=== PATIENT | female | born 1970 | race Caucasian/White ===

== ENCOUNTER → 2021-10-01 11:54 | Outpatient (BNVA) | payer OTHER, SELFPAY | PROVIDERS: Visit Provider Nurse Practitioner Family | DX: M79.641 Pain in right hand (principal); M79.642 Pain in left hand | CPT/HCPCS: 73130 ==

== ENCOUNTER → 2022-02-12 11:15 | Outpatient (BNVA) | payer OTHER, SELFPAY | PROVIDERS: Visit Provider Nurse Practitioner Family | DX: M25.531 Pain in right wrist (principal); M19.90 Unspecified osteoarthritis, unspecified site; M25.50 Pain in unspecified joint; M79.10 Myalgia, unspecified site; R53.83 Other fatigue; Z13.220 Encounter for screening for lipoid disorders; Z79.899 Other long term (current) drug therapy | CPT/HCPCS: 73110; 80053; 80061; 82306; 82607; 84443; 84550; 85651; 86038; 86140; 86200; 86431; 86705; 86706; 86709; 86803; 87340 ==

== ENCOUNTER 2022-07-24 11:48 | Emergency (ER) | payer OTHER, SELFPAY ==
[2022-07-24 12:20] VITALS: BMI 19.5
[2022-07-24 12:25] VITALS: BP 120/71; PULSE 71; RESP 18; TEMP 36.6; O2SAT 98
[2022-07-24 13:49] LABS: Basophils # 0.1 10^3/uL (0.0-0.1); Basophils % 0.8 %; Eosinophils # 0.4 10^3/uL (0.0-0.8); Eosinophils % 4.9 %; Hematocrit 46.1 % (37.0-47.0); Hemoglobin 15.5 g/dL (11.5-15.3); Lymphocytes # 2.7 10^3/uL (0.8-4.8); Lymphocytes % 34.7 %; Mean Corpuscular HGB Conc 33.6 g/dL (30.0-36.0); Mean Corpuscular Hemoglobin 32.5 pg (28.0-34.0); Mean Corpuscular Volume 96.6 fl (81-99); Mean Platelet Volume 10.3 fL (7.4-10.4); Monocytes # 0.5 10^3/uL (0.2-0.9); Monocytes % 6.1 %; Neutrophils # 4.13 10^3/uL (1.8-7.7); Neutrophils % 53.1 %; Nucleated Red Blood Cells % 0 %; Platelet Count 278 10^3/cmm (130-400); Red Blood Count 4.77 10^6/uL (4.1-5.3); Red Cell Distribution Width 13.2 % (12.1-15.1); White Blood Count 7.8 10^3/uL (4.0-10.0)
[2022-07-24 14:11] LABS: Alanine Aminotransferase 10 U/L (0-33); Albumin Level 4.2 g/dL (3.5-5.2); Alkaline Phosphatase 84 U/L (35-105); Anion Gap 16.3 (5-19); Aspartate Amino Transferase 12 U/L (0-32); Blood Urea Nitrogen 8 mg/dL (6-20); Calcium 9.5 mg/dL (8.5-10.5); Carbon Dioxide 25 mmol/L (22-29); Chloride 103 mmol/L (98-107); Globulin 3.3 g/dL (1.3-4.6); Glomerular Filtration Rate 129.1 mL/min (90-130); Glucose 85 mg/dL (65-115); Lipase 64 U/L (13-60); Osmolality Calculated 288 mOsm/kg (285-295); Sodium 140 mmol/L (136-145); Total Bilirubin 0.2 mg/dL (0.15-1.2); Total Protein 7.5 g/dL (6.6-8.7)
[2022-07-24 14:12] LABS: Potassium 4.3 mmol/L (3.5-5.1)
--- NOTE | 2022-07-24 14:52 | W.ED.SKABFB ---
HPI - Skin/Abscess/Foreign Bdy General: Chief complaint: Skin/Abscess/Foreign Body Stated complaint: ask to come in to [facility] Left side pain Time Seen by Provider: 07/24/22 14:05 History of Present Illness: Patient is a 52-year-old female who comes to the ED with abscesses of left axilla. Patient was seen by [facility] in [facility] on June 08 for same complaint. They performed a I&D on left axillary abscess at that time gave her a dose of steroids and antibiotic. Abscess came back and now she has 4-5 more small abscesses in the left axillary region that popped up within the last week. Denies any other complaints or symptoms. Associated symptoms: Deny chills, fever(s), nausea or vomiting Review of Systems Const: Denies: fever(s), chills or fatigue Eyes: Denies: change in vision or eye discomfort ENMT: Denies: throat pain, odynophagia, nasal discharge or nasal congestion Card: Denies: chest pain, palpitations, edema, swelling of feet/ankles, dyspnea on exertion or orthopnea Resp: Denies: dyspnea, productive cough or non-productive cough GI: Denies: abdominal pain, nausea, vomiting, diarrhea, constipation or hematochezia : Denies: flank pain, dysuria or hematuria Musc: Denies: neck pain, back pain or extremity swelling Skin/Breast: Reports: new lesions (Left axillary abscess); Denies: rash Neuro: Denies: headache(s), numbness in extremities or weakness in extremities [facility] PFSH: Medical History Restless leg syndrome Surgical History Hx of hysterectomy Family History Mother Psychiatric illness Bipolar, multiple personalities Denies family history of Diabetes Clotting disorder Bleeding disorder Cancer Social History Smoking and tobacco status: never smoked Second hand smoke exposure: Yes Alcohol intake: former Year of sobriety/quit date alcohol: 2018 Former alcohol use details: heavy drinker 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-15 Lives independently: Yes Household members: spouse Marital status: service: No Current occupational status: unemployed History of recent travel: No Current gender identity: Female Physical Exam Const: COMMON NORMALS: no acute distress, patient oriented x3 and alert GENERAL APPEARANCE: cooperative and comfortable HENMT: COMMON NORMALS: normocephalic HEAD & SCALP: normocephalic MOUTH: Normal oral and palatal mucosa present THROAT: posterior oropharynx normal and uvula midline Neck/C-Spine: COMMON NORMALS: supple GENERAL: Yes normal visual inspection Resp: COMMON NORMALS: normal respiratory effort, No retractions, No use of accessory muscles and clear to auscultation bilaterally AUSCULTATION: clear to auscultation bilaterally Cardio: COMMON NORMALS: regular rate, regular rhythm, S1 normal heart sound present, S2 normal heart sound present, No gallops present (Cardio), No clicks present (Cardio), No murmurs present (Cardio) and Peripheral pulses 2+ throughout RATE: regular rate RHYTHM: regular rhythm HEART SOUNDS: S1 normal heart sound present and S2 normal heart sound present PERIPHERAL PULSES: Peripheral pulses 2+ throughout GI: COMMON NORMALS: Normal to inspection, nondistended, normoactive bowel sounds present, Soft to palpation, non-tender and no masses PALPATION: Yes Soft to palpation : COMMON NORMALS: Yes no CVA tenderness BLADDER/KIDNEY EXAM: Yes no CVA tenderness Back/Pelvis: COMMON NORMALS: no CVA tenderness Extremity: NARRATIVE EXTREMITY EXAM: Left axillary?multiple abscesses noted. Surrounding erythema warmth and tenderness noted. Neuro: COMMON NORMALS: patient oriented x3 SENSORIUM/ORIENTATION: Yes alert GAIT: Yes Normal gait present Skin: GENERAL SKIN EXAM: dry skin Procedures Abscess I/D Site: upper extremity (Left axillary) Side (if applicable): left Sedation/analgesia: none Local Anesthetic: lidocaine 1% and with epi Amount of anesthesia used (mL): 3 Technique: incised with #11 blade Amount of fluid expressed (mL): 2 Irrigation: Yes Packing used?: none Course Vital Signs: Vital signs: Vital Signs Temperature 97.9 F 07/24/22 12:25 Pulse Rate 71 07/24/22 12:25 Respiratory Rate 18 07/24/22 12:25 Blood Pressure 120/71 07/24/22 12:25 Pulse Oximetry 98 07/24/22 12:25 Oxygen Delivery Me thod 07/24/22 12:25 MDM - Skin/Abscess/Foreign Bdy Medicial Decision Making Patient is a 52-year-old female who comes to the ED with abscesses of left axilla. Patient was seen by [facility] in [facility] on June 08 for same complaint. They performed a I&D on left axillary abscess at that time gave her a dose of steroids and antibiotic. Abscess came back and now she has 4-5 more small abscesses in the left axillary region that popped up within the last week. Vitals are stable. Exam shows multiple abscesses on left axillary region. CBC and CMP were unremarkable. Abscess culture obtained and pending. Abscess I&D was performed and patient was put on a prescription for clindamycin. I placed order with case management for patient to be referred to general surgery for follow-up on axillary abscesses, especially since this is the second time they will have been drained. Patient was stable for discharge home and diagnosed with left axillary abscess. Return to ED precautions given. Patient understood and agreed with plan. Lab Data I reviewed the patient's lab results. : 07/24/22 13:36 07/24/22 13:36 Laboratory Results WBC 7.8 10^3/uL (4.0-10.0) 07/24/22 13:36 RBC 4.77 10^6/uL (4.1-5.3) 07/24/22 13:36 Hgb 15.5 g/dL (11.5-15.3) H 07/24/22 13:36 Hct 46.1 % (37.0-47.0) 07/24/22 13:36 MCV 96.6 fl (81-99) 07/24/22 13:36 MCH 32.5 pg (28.0-34.0) 07/24/22 13:36 MCHC 33.6 g/dL (30.0-36.0) 07/24/22 13:36 RDW 13.2 % (12.1-15.1) 07/24/22 13:36 Plt Count 278 10^3/cmm (130-400) 07/24/22 13:36 MPV 10.3 fL (7.4-10.4) 07/24/22 13:36 Neut % (Auto) 53.1 % 07/24/22 13:36 Lymph % (Auto) 34.7 % 07/24/22 13:36 Gaines % (Auto) 6.1 % 07/24/22 13:36 Eos % (Auto) 4.9 % 07/24/22 13:36 Baso % (Auto) 0.8 % 07/24/22 13:36 Neut # (Auto) 4.13 10^3/uL (1.8-7.7) 07/24/22 13:36 Lymph # (Auto) 2.7 10^3/uL (0.8-4.8) 07/24/22 13:36 Gaines # (Auto) 0.5 10^3/uL (0.2-0.9) 07/24/22 13:36 Eos # (Auto) 0.4 10^3/uL (0.0-0.8) 07/24/22 13:36 Baso # (Auto) 0.1 10^3/uL (0.0-0.1) 07/24/22 13:36 Nucleated RBC % (auto) 0 % 07/24/22 13:36 Nucleated RBCs # 0.0 /100WBC 07/24/22 13:36 Sodium 140 mmol/L (136-145) 07/24/22 13:36 Potassium 4.3 mmol/L (3.5-5.1) 07/24/22 13:36 Chloride 103 mmol/L (98-107) 07/24/22 13:36 Carbon Dioxide 25 mmol/L (22-29) 07/24/22 13:36 Anion Gap 16.3 (5-19) 07/24/22 13:36 BUN 8 mg/dL (6-20) 07/24/22 13:36 Creatinine 0.5 mg/dL (0.5-0.9) 07/24/22 13:36 GFR Calculation 129.1 mL/min (90-130) 07/24/22 13:36 Glucose 85 mg/dL (65-115) 07/24/22 13:36 Calculated Osmolality 288 mOsm/kg (285-295) 07/24/22 13:36 Calcium 9.5 mg/dL (8.5-10.5) 07/24/22 13:36 Total Bilirubin 0.2 mg/dL (0.15-1.2) 07/24/22 13:36 AST 12 U/L (0-32) 07/24/22 13:36 ALT 10 U/L (0-33) 07/24/22 13:36 Alkaline Phosphatase 84 U/L (35-105) 07/24/22 13:36 Total Protein 7.5 g/dL (6.6-8.7) 07/24/22 13:36 Albumin 4.2 g/dL (3.5-5.2) 07/24/22 13:36 Globulin 3.3 g/dL (1.3-4.6) 07/24/22 13:36 Lipase 64 U/L (13-60) H 07/24/22 13:36 Urine Color Yellow (Yellow) 07/24/22 14:46 Urine Appearance Clear (CLEAR) 07/24/22 14:46 Urine pH 6.5 (5-7) 07/24/22 14:46 Ur Specific [place] 1.010 (1.005-1.030) 07/24/22 14:46 Urine Protein Neg (Negative) 07/24/22 14:46 Urine Glucose (UA) Norm (Normal) 07/24/22 14:46 Urine Ketones Negative (Negative) 07/24/22 14:46 Urine Blood Neg (Negative) 07/24/22 14:46 Urine Nitrate Negative (Negative) 07/24/22 14:46 Urine Bilirubin Neg (Negative) 07/24/22 14:46 Urine Urobilinogen Norm mg/dL (Negative) 07/24/22 14:46 Ur Leukocyte Esterase Negative (Negative) 07/24/22 14:46 Discharge Plan Discharge Patient Disposition: Home Clinical Impression: Abscess of axilla, left Condition: Stable Prescriptions: New clindamycin HCl 150 mg capsule 300 mg PO QID 7 Days Qty: 56 0RF Discharge Orders: Discharge ED (Routine); Ordered 07/24/22 Ordered By: Nikunj Wild Discharge Diet: Regular Discharge Activity: Increase activity as tolerated Activity Restrictions/Additional Instructions: Follow-up with medical provider as directed. Case management regarding in the next several days to set up an appointment with general surgery for follow-up on left axillary abscess. Take medications as prescribed. Return to the ER or your medical provider if condition worsens. Please read and understand discharge instructions. Thank you for choosing [facility] for your healthcare needs today. Please realize this is an emergency room and that we are providing you with a medical screening exam and this may not be complete and all inclusive of all the testing and or work up that you may need to determine your ailment or severity of your illness. It is very important that you follow up as instructed or that you return to the Emergency Department should you have concerns or if your condition changes or worsens in any way. Stand Alone Forms: Work/School Release Coding Level of Care Code ED Baker Pie for Meg Fwd Exam Comprehensive
[2022-07-24 15:05] LABS: Add Urine Microscopic? NO; Charge for UA Resulting for Rev
[2022-07-24 15:07] LABS: Bilirubin Urine Neg (Negative); Blood Urine Neg (Negative); Glucose Urine UA Norm (Normal); Ketones Urine Negative (Negative); Leukocyte Esterase Urine Negative (Negative); Nitrate Urine Negative (Negative); Protein Urine Neg (Negative); Urine Appearance Clear (CLEAR); Urine Color Yellow (Yellow); Urobilinogen Urine Norm (Negative); pH Urine 6.5 (5-7)
--- NOTE | 2022-07-25 11:10 | DCPLANNER ---
Addendum entered by Karol Jones 08/27/22 13:32: Patient had a follow up appointment scheduled with general surgery - patient did not attend appointment. Addendum entered by Karol Jones 08/06/22 12:49: Patient has a follow up appointment scheduled for Saturday August 13, 2022 at 2:[address] Rust at general surgery. Clinic will call patient with appointment information. Original Note: alterations manager had message to schedule a follow up appointment for patient with general surgery. alterations manager sent patients information to the front office staff at general surgery. Patients information will be printed and reviewed. Clinic will call patient with appointment information.
== END 2022-07-24 15:43 | disposition home or self-care (01) ==
PROVIDERS: Emergency Medicine; Emergency Provider Physician Assistant
DX: L02.412 Cutaneous abscess of left axilla (principal)
CPT/HCPCS: 10060; 36415; 80053; 81003; 83690; 85025; 87070; 87075; 87077; 87186; 87205; 99283

== ENCOUNTER → 2025-02-25 11:27 | Outpatient (BNVA) | payer OTHER, SELFPAY | PROVIDERS: PCP Nurse Practitioner Family; Visit Provider Nurse Practitioner Family | DX: M25.541 Pain in joints of right hand (principal); M25.542 Pain in joints of left hand; M25.40 Effusion, unspecified joint | CPT/HCPCS: 80053; 80061; 84443; 85025; 85651; 86140; 86160; 86162; 86235; 86255; 86376; 86431 ==

== ENCOUNTER → 2025-07-27 09:58 | Outpatient (BNVA) | payer OTHER, SELFPAY | PROVIDERS: PCP Nurse Practitioner Family; Visit Provider Clinical Nurse Specialist Adult Health | DX: M79.18 Myalgia, other site (principal); M25.59 Pain in other specified joint | CPT/HCPCS: 80053; 82306; 82607; 84443; 85025; 86140 ==

== ENCOUNTER 2025-08-09 12:02 | Day surgery (SDC) | payer OTHER, SELFPAY ==
[2025-08-09 12:17] VITALS: BP 145/79; PULSE 84; RESP 18; TEMP 36.4; O2SAT 99; BMI 20.5
--- NOTE | 2025-08-09 12:34 | ANES.PREANE2 ---
Pre-Anesthetic Assessment Height/Weight: Height 1.63 m Weight 54.431 kg Temp Pulse Resp BP Pulse Ox O2 Del Method 97.6 F 84 18 145/79 99 Room Air 08/09/25 12:17 08/09/25 12:17 08/09/25 12:17 08/09/25 12:17 08/09/25 12:17 08/09/25 12:17 Operation Date: 08/09/25 13:30 Proposed Procedures p Colonoscopy 16194 G0121 Z12.11(Not Applicable) - Nam Perez MD Familial anesthetic complications: None Was Beta Arcadio taken within 24 hours: N/A Was Clonidine taken within 24 hours: N/A Last intake: Intake Last Liquid Date 08/08/25 Last Liquid Time 23:00 Last Solid Date 08/07/25 Last Solid Time 23:00 Social Tobacco and No alcohol Exam alert, oriented x 3, clear to auscultation bilaterally and regular rate & rhythm Airway Mallampati: Class II Dentition: full Pulmonary Asthma Anesthetic Plan ASA status: 2 Anesthesia: MAC Risk of > 500 ml blood loss (7ml/kg in children): No Medications/Allergies Home Medications ?Medication ?Instructions ?Recorded ?Confirmed ?Last Taken ?Type No Known Home Medications 08/01/25 08/04/25 Unknown History Allergies Allergy/AdvReac Type Severity Reaction Status Date / Time No Known Allergies Allergy Verified 08/09/25 12:14 Current Medications Generic Name Dose Route Start Last Admin Trade Name Freq PRN Reason Stop Dose Admin Sodium Chloride 1,000 mls @ 15 mls/hr 08/09/25 12:09 08/09/25 12:25 Sodium Chloride 0.9% IV 08/10/25 12:08 15 mls/hr .Q24H PRN Administration COLONOSCOPY FLUIDS PFSH Anesthesia Medical History Arthritis Left knee pain Surgical History (Updated 08/01/25 @ 10:57 by Fabienne Lundberg CMA) Hx of hysterectomy Family History Mother Psychiatric illness Bipolar, multiple personalities Denies family history of Diabetes Clotting disorder Bleeding disorder Cancer Social History Smoking and tobacco/nicotine status: current every day tobacco/nicotine user cigarettes [ Other cigarette details: 30 pack year history] Second hand smoke exposure: Yes Alcohol intake: former Year of sobriety/quit date alcohol: 2018 Former alcohol use details: heavy drinker 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
--- NOTE | 2025-08-09 13:01 | W.PM.OPSUD ---
Surgery/Procedure H&P Update DATE OF PROCEDURE: August 09, 2025 DATE H&P PERFORMED: 08/01/25 H&P UPDATE INFORMATION: I have reviewed H&P completed within last 30 days, I have examined patient prior to procedure, No changes to prior documentation and Risks and benefits of the procedure reviewed PLANNED PROCEDURE: Operation Date: 08/09/25 13:30 Proposed Procedures p Colonoscopy 59944 G0121 Z12.11(Not Applicable) - Nam Perez MD
[2025-08-09 13:23] VITALS: BP 143/85; PULSE 69; RESP 16; TEMP 36.3; O2SAT 100
--- NOTE | 2025-08-09 13:47 | PC.NURSE ---
Attempted o call pt 10 times and called her phone which is with him. No answer and call rung not allowing me to leave .
[2025-08-09 14:10] VITALS: BP 140/84; PULSE 78; RESP 16; O2SAT 100
--- NOTE | 2025-08-09 14:15 | ANE.PACU2 ---
Inpatient post-anesthesia follow up: Airway intact: Yes Vital signs: Temperature 97.3 F Pulse Rate 78 Respiratory Rate 16 Blood Pressure 140/84 Pulse Oximetry 100 Oxygen Delivery Me thod Room Air Oxygen Flow Rate Fraction of Inspir ed Oxygen Hydration adequate: Yes Nausea and vomiting: No Pain level: 1 Mental status: Baseline
== END 2025-08-09 14:15 | disposition home or self-care (01) ==
PROVIDERS: PCP Nurse Practitioner Family; Visit Provider Student in an Organized Health Care Education/Training Program
PROC: 0DJD8ZZ Inspection of Lower Intestinal Tract, Via Natural or Artificial Opening Endoscopic (ICD-10-PCS; CPT 45378; principal; 2025-08-09 13:30)
DX: Z12.11 Encounter for screening for malignant neoplasm of colon (principal); K64.4 Residual hemorrhoidal skin tags; F17.210 Nicotine dependence, cigarettes, uncomplicated
CPT/HCPCS: 45378; J2704; J7030

== ENCOUNTER 2025-08-15 10:55 | Outpatient (CLI) | payer OTHER, SELFPAY ==
--- NOTE | 2025-08-15 11:15 | CT_ITS ---
WS: [id number] LDCT LUNG CANCER SCREENING TECHNIQUE: Noncontrast CT of the chest with coronal and sagittal reformatted images. CLINICAL INFORMATION: Z72.0 - Tobacco use COMPARISON: None. DLP: 42.70 mGy.cm DIvol: Mean CTDIvol: 0.70 (mGy) All CT scans at [facility] use at least one of these dose optimization techniques: automated exposure control; mA and/or kV adjustment per patient size (includes targeted exams where dose is matched to clinical indication); or iterative reconstruction. FINDINGS: Mild hyperinflation. Mild chronic emphysematous changes. No suspicious pulmonary parenchymal abnormalities. Aortic calcification. Normal caliber thoracic aorta. Coronary calcification. No mediastinal or hilar lymphadenopathy. No axillary lymphadenopathy. Splenic granulomas. Mild thoracic curve. Moderate thoracic kyphosis. CT/CT lung screening [id number] IMPRESSION: LUNG-RADS: 1-Negative FOLLOW UP: 12 Month: Continue annual screening with LDCT
== END 2025-08-15 10:56 | disposition home or self-care (01) ==
LOC: RAD 10:56
PROVIDERS: PCP Nurse Practitioner Family; Visit Provider Clinical Nurse Specialist Adult Health
DX: Z72.0 Tobacco use (principal); I70.0 Atherosclerosis of aorta; J43.9 Emphysema, unspecified; J84.10 Pulmonary fibrosis, unspecified; D73.9 Disease of spleen, unspecified; M40.204 Unspecified kyphosis, thoracic region; M40.04 Postural kyphosis, thoracic region
CPT/HCPCS: 71271